=== PATIENT | female | born 1975 | race Hispanic/Latino ===

== ENCOUNTER 2023-09-12 14:23 | Emergency (ER) | payer OTHER ==
[~2023-09-12] VITALS: Ht 152.4 cm; Wt 70.3 kg
[2023-09-12 14:31] VITALS: O2SAT 100
[2023-09-12] MEDS ORDERED: PREDNISONE 10 MG TAB PO ONE (14:45)
[2023-09-12] MEDS ORDERED: PREDNISONE 20 MG TAB PO ONE (15:30)
[2023-09-12] MEDS ORDERED: PREDNISONE20 MG PO (16:07)
[2023-09-12] MEDS ORDERED: BENADRYL25 M1 PO (16:07)
[2023-09-12] MEDS ORDERED: ONDANSETRON ODT4 MG PO (16:12)
== END 2023-09-12 16:28 | disposition home or self-care (01) ==
LOC: ER 14:35
DX: R11.2 Nausea with vomiting, unspecified (principal); R19.7 Diarrhea, unspecified; B34.9 Viral infection, unspecified; T78.40XA Allergy, unspecified, initial encounter
CPT/HCPCS: 99282; J7512